=== PATIENT | female | born 1985 ===

== ENCOUNTER 2018-06-20 17:45 | Emergency (ER) | payer OTHER ==
[2018-06-20 18:07] VITALS: BP 129/87; PULSE 76; RESP 18; TEMP 98.6; O2SAT 98; BMI 24.5
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
== END 2018-06-20 20:21 | disposition home or self-care (01) ==
LOC: ED 17:45
DX: M54.9 Dorsalgia, unspecified (principal)